=== PATIENT | female | born 1985 | race Two or more races ===

== ENCOUNTER 2018-10-06 13:12 | Emergency (ER) | payer SELFPAY ==
[~2018-10-06] VITALS: Ht 172.7 cm; Wt 99.8 kg
[~2018-10-06 13:12] MED LIST: PRENTAB28 PO
[2018-10-06 13:41] LABS: Basophils # (auto) 0.1 uL; Basophils % (auto) 1.1 % (0.0-2.0); Eosinophils # (auto) 0.1 uL; Eosinophils % (auto) 1.3 % (0.0-7.0); Hematocrit 41.7 % (36.0-46.0); Hemoglobin 14.3 g/dL (12.2-16.2); Lymphocytes # (auto) 2.3 uL; Lymphocytes % (auto) 22.6 % (10.0-50.0); Mean Corpuscular Hgb Conc. 34.2 g/dL (32.0-36.0); Mean Corpuscular Volume 90.8 fL (80.0-100.0); Monocytes # (auto) 0.4 uL; Monocytes % (auto) 4.4 % (0.0-12.0); Neutrophils # (auto) 7.1 uL; Neutrophils % (auto) 70.6 % (37.0-80.0); Platelet Count (auto) 292 10^3/uL (140-450); Red Blood Cells 4.59 10^6/uL (4.0-5.20); Red Cell Distribution Width 13.7 % (11.8-14.3)
[2018-10-06 13:57] LABS: Albumin 3.5 g/dL (3.4-5.0); Anion Gap 8 (5-15); Blood Urea Nitrogen 9 mg/dL (7-18); Calcium 9.2 mg/dL (8.5-10.1); Carbon Dioxide 22 mmol/L (21-32); Chloride 108 mmol/L (98-107); Glucose 105 mg/dL (74-106); Potassium 3.4 mmol/L (3.5-5.1); Sodium 138 mmol/L (136-145)
[2018-10-06 14:02] LABS: Alanine Aminotransferase 18 U/L (13-56); Alkaline Phosphatase 78 U/L (45-117); Aspartate Aminotransferase 9 U/L (15-37); BUN/Creatinine Ratio 11.8; Bilirubin, Total 0.5 mg/dL (0.2-1.0); GFR African American 113 mL/min; GFR Non-African American 94 mL/min; Total Protein 7.8 g/dL (6.4-8.2)
[2018-10-06 15:30] VITALS: BP 132/80
== END 2018-10-06 15:36 | disposition home or self-care (01) ==
LOC: ER 13:17
DX: O26.891 Other specified pregnancy related conditions, first trimester (principal); R07.89 Other chest pain; Z3A.01 Less than 8 weeks gestation of pregnancy
CPT/HCPCS: 36415; 80053; 84484; 85025; 93005

== ENCOUNTER 2018-10-13 11:31 | Emergency (ER) | payer SELFPAY ==
[~2018-10-13] VITALS: Ht 172.7 cm; Wt 99.8 kg
[2018-10-13] MEDS ORDERED: SODIUM CHLORIDE 0.9% 500 ML IV ONE (11:43)
[2018-10-13 12:14] LABS: Basophils # (auto) 0.1 uL; Basophils % (auto) 0.7 % (0.0-2.0); Eosinophils # (auto) 0.1 uL; Eosinophils % (auto) 1.5 % (0.0-7.0); Hematocrit 41.2 % (36.0-46.0); Hemoglobin 14.1 g/dL (12.2-16.2); Lymphocytes # (auto) 2.1 uL; Lymphocytes % (auto) 26.7 % (10.0-50.0); Mean Corpuscular Hemoglobin 30.8 pg (28.0-32.0); Mean Corpuscular Hgb Conc. 34.2 g/dL (32.0-36.0); Monocytes # (auto) 0.3 uL; Monocytes % (auto) 4.4 % (0.0-12.0); Neutrophils # (auto) 5.3 uL; Neutrophils % (auto) 66.7 % (37.0-80.0); Nucleated Red Blood Cells % 0.1 %; Platelet Count (auto) 304 10^3/uL (140-450); Red Blood Cells 4.58 10^6/uL (4.0-5.20); White Blood Cell 7.9 10^3/uL (4.4-10.8)
[2018-10-13 14:29] LABS: Urine Blood Normal /uL (Negative); Urine Specific Gravity 1.025 (1.001-1.035)
[2018-10-13 14:51] LABS: Urine WBC 5 /hpf (0 - 5)
[2018-10-13 14:52] LABS: Urine Bacteria MOD /hpf (None Seen); Urine Mucus FEW (None Seen)
[2018-10-13 16:31] VITALS: BP 124/64
== END 2018-10-13 16:37 | disposition home or self-care (01) ==
LOC: ER 11:31
DX: O20.0 Threatened abortion (principal); O23.41 Unspecified infection of urinary tract in pregnancy, first trimester; Z3A.01 Less than 8 weeks gestation of pregnancy
CPT/HCPCS: 36415; 76801; 76817; 81001; 84702; 85025; 86900; 86901; 94761; 99284; J7040

== ENCOUNTER 2018-11-21 12:49 | Emergency (ER) | payer MEDICAID ==
[~2018-11-21] VITALS: Ht 172.7 cm; Wt 99.8 kg
[2018-11-21 13:21] VITALS: BP 153/79
== END 2018-11-21 13:58 | disposition left against medical advice (07) ==
LOC: ER 12:52
DX: O26.891 Other specified pregnancy related conditions, first trimester (principal); R51 Headache; R42 Dizziness and giddiness; R07.9 Chest pain, unspecified; H53.8 Other visual disturbances; R11.0 Nausea; Z3A.13 13 weeks gestation of pregnancy

== ENCOUNTER 2019-02-12 07:55 | Observation (INO) | payer MEDICAID ==
[~2019-02-12] VITALS: Ht 172.7 cm; Wt 100.7 kg
[2019-02-12] MEDS ORDERED: [UNRECOGNIZED DRUG - CODE] (08:41)
== END 2019-02-12 08:57 | disposition home or self-care (01) | DRG 566 ==
LOC: LDRP 07:55
PROVIDERS: ADMIT Obstetrics & Gynecology; ATTEND Obstetrics & Gynecology
DX: O36.8120 Decreased fetal movements, second trimester, not applicable or unspecified (principal); Z3A.25 25 weeks gestation of pregnancy
CPT/HCPCS: 59025; 81002; G0378

== ENCOUNTER 2019-03-19 19:55 | Emergency (ER) | payer MEDICAID ==
[~2019-03-19] VITALS: Ht 172.7 cm; Wt 102.5 kg
[~2019-03-19 19:55] MED LIST changes: +[UNRECOGNIZED DRUG - CODE]
[2019-03-19] MEDS ORDERED: cefTRIAXone SOD 1,000 MG VL IM ONE (20:15)
[2019-03-19] MEDS ORDERED: ALBUTEROL SULF 2.5 MG/0.5ML(0.5%) NEB SOLN NEB ONE (20:15)
[2019-03-19] MEDS ORDERED: ACETAMINOPHEN 325 MG TAB PO ONE (20:15)
[2019-03-19] MEDS ORDERED: LIDOCAINE 2% (LOCAL ANESTH.) PF 5ml SDV ONE (20:48)
[2019-03-19 22:00] VITALS: BP 126/75
[2019-03-19] MEDS ORDERED: SODIUM CHLORIDE 0.9% 1,000 ML IV ONE (22:00)
== END 2019-03-19 23:29 | disposition home or self-care (01) ==
LOC: ER 19:59
DX: O26.893 Other specified pregnancy related conditions, third trimester (principal); J06.9 Acute upper respiratory infection, unspecified; H66.92 Otitis media, unspecified, left ear; Z3A.30 30 weeks gestation of pregnancy
CPT/HCPCS: 94640; 96372; 99283; J0696; J2001; J7030

== ENCOUNTER 2019-05-06 09:22 | Observation (INO) | payer MEDICAID ==
[~2019-05-06] VITALS: Ht 172.7 cm; Wt 102.1 kg
[2019-05-06 11:36] LABS: Basophils # (auto) 0 uL; Basophils % (auto) 0.5 % (0.0-2.0); Eosinophils # (auto) 0.1 uL; Eosinophils % (auto) 1.8 % (0.0-7.0); Hematocrit 38.7 % (36.0-46.0); Hemoglobin 13.4 g/dL (12.2-16.2); Lymphocytes # (auto) 1.8 uL; Lymphocytes % (auto) 20.9 % (10.0-50.0); Mean Corpuscular Hemoglobin 30.9 pg (28.0-32.0); Mean Corpuscular Hgb Conc. 34.6 g/dL (32.0-36.0); Mean Corpuscular Volume 89.2 fL (80.0-100.0); Monocytes # (auto) 0.3 uL; Monocytes % (auto) 3.9 % (0.0-12.0); Neutrophils # (auto) 6.2 uL; Neutrophils % (auto) 72.9 % (37.0-80.0); Nucleated Red Blood Cells % 0.1 %; Platelet Count (auto) 219 10^3/uL (140-450); Red Blood Cells 4.33 10^6/uL (4.0-5.20); Red Cell Distribution Width 14.5 % (11.8-14.3); White Blood Cell 8.5 10^3/uL (4.4-10.8)
[2019-05-06 11:54] LABS: Albumin 2.5 g/dL (3.4-5.0); Calcium 8.4 mg/dL (8.5-10.1); Potassium 3.8 mmol/L (3.5-5.1)
[2019-05-06 11:56] LABS: Bilirubin, Total 0.3 mg/dL (0.2-1.0); Total Protein 7.2 g/dL (6.4-8.2)
[2019-05-08] MEDS ORDERED: URSO300C4 PO (09:47)
== END 2019-05-06 11:35 | disposition home or self-care (01) | DRG 566 ==
LOC: LDRP 09:22
PROVIDERS: ADMIT Specialist; ATTEND Specialist
DX: O26.613 Liver and biliary tract disorders in pregnancy, third trimester (principal); Z3A.37 37 weeks gestation of pregnancy
CPT/HCPCS: 36415; 59025; 76818; 80053; 81002; 85025; G0378

== ENCOUNTER 2019-05-09 11:07 | Observation (INO) | payer MEDICAID ==
[~2019-05-09] VITALS: Ht 172.7 cm; Wt 102.1 kg
[~2019-05-09 11:07] MED LIST changes: +URSO300C4 PO
[2019-05-09] MEDS ORDERED: BETAMETHASONE ACET (6MG/ML) 5ML VIAL IM SCH (11:30)
== END 2019-05-09 13:05 | disposition home or self-care (01) | DRG 566 ==
LOC: LDRP 11:07
PROVIDERS: ADMIT Specialist; ATTEND Specialist
DX: O26.613 Liver and biliary tract disorders in pregnancy, third trimester (principal); K83.1 Obstruction of bile duct; Z3A.37 37 weeks gestation of pregnancy
CPT/HCPCS: 59025; 81002; 96372; G0378; J0702

== ENCOUNTER 2019-05-09 22:02 | Inpatient (IN) | payer MEDICAID ==
[~2019-05-09] VITALS: Ht 172.7 cm; Wt 56.7 kg
[2019-05-09] MEDS ORDERED: LACT. RINGERS/OXYTOCIN 20UNITS 1,000 ML IV SCH (22:13)
[2019-05-09] MEDS ORDERED: LIDOCAINE 2%HCL (LOCAL ANESTH.) INJ 20ML MDV ID ONE (22:15)
[2019-05-09] MEDS ORDERED: METHYLERGONOVINE MALEATE 0.2 MG/ML AMP IM PRN (22:15)
[2019-05-09] MEDS ORDERED: CARBOPROST TROMETHAMINE 250 MCG/1ML VIAL IM PRN (22:15)
[2019-05-09] MEDS: LACTATED RINGER'S 1,000 ML IV SCH (22:23)
[2019-05-09] MEDS ORDERED: BUTORPHANOL TARTRATE 2 MG/1 ML VIAL IV PRN (22:30)
[2019-05-09] MEDS ORDERED: PROMETHAZINE HCL 25 MG/ML 1ML IV PRN (22:30)
[2019-05-09 22:49] LABS: Basophils # (auto) 0 uL; Basophils % (auto) 0.2 % (0.0-2.0); Eosinophils # (auto) 0 uL; Hematocrit 36.4 % (36.0-46.0); Hemoglobin 12.1 g/dL (12.2-16.2); Lymphocytes # (auto) 1.2 uL; Lymphocytes % (auto) 10.2 % (10.0-50.0); Mean Corpuscular Hemoglobin 29.8 pg (28.0-32.0); Mean Corpuscular Hgb Conc. 33.3 g/dL (32.0-36.0); Mean Corpuscular Volume 89.4 fL (80.0-100.0); Monocytes # (auto) 0.2 uL; Monocytes % (auto) 2.1 % (0.0-12.0); Neutrophils # (auto) 10.1 uL; Neutrophils % (auto) 87.5 % (37.0-80.0); Nucleated Red Blood Cells % 0.1 %; Platelet Count (auto) 250 10^3/uL (140-450); Red Blood Cells 4.07 10^6/uL (4.0-5.20); Red Cell Distribution Width 14.2 % (11.8-14.3); White Blood Cell 11.5 10^3/uL (4.4-10.8)
[2019-05-09 22:57] LABS: Urine Bacteria FEW /hpf (None Seen); Urine Blood Negative /uL (Negative); Urine Mucus FEW (None Seen); Urine Specific Gravity 1.036 (1.001-1.035); Urine WBC 19 /hpf (0 - 5)
[2019-05-09 23:06] LABS: Albumin 2.5 g/dL (3.4-5.0); Calcium 8.3 mg/dL (8.5-10.1); Potassium 3.6 mmol/L (3.5-5.1)
[2019-05-09 23:08] LABS: BUN/Creatinine Ratio 22.9
[2019-05-09 23:09] LABS: Alcohol, Urine < 3.0 mg/dL (0-5); Amphetamine Screen, Urine NEGATIVE (NEGATIVE); Barbiturate Scree,Urine NEGATIVE (NEGATIVE); Benzodiazephine Screen, Urine NEGATIVE (NEGATIVE); Cannabinoid Screen, Urine NEGATIVE (NEGATIVE); Cocaine Screen, Urine NEGATIVE (NEGATIVE); Opiate Scree,Urine NEGATIVE (NEGATIVE); Phencyclidine Screen, Urine NEGATIVE (NEGATIVE)
[2019-05-09 23:12] LABS: INR 1.01 (0.9-1.15); Partial Thromboplastin Time 28.9 sec (23.64-32.05)
[2019-05-09 23:28] LABS: Bilirubin, Total 0.2 mg/dL (0.2-1.0); Total Protein 6.9 g/dL (6.4-8.2)
[2019-05-10] MEDS: DERMOPLAST 60ML BOTTLE TOP PRN (03:59)
[2019-05-10] MEDS: WITCH HAZEL-GLYCERIN PAD TOP PRN (03:59)
[2019-05-10] MEDS: PHISODERM TOP SOLN 240ML BTL TOP PRN (03:59)
[2019-05-10] MEDS: LACTATED RINGER'S 1,000 ML IV SCH ×2 (06:30→20:00)
[2019-05-10] MEDS ORDERED: LACT. RINGERS/OXYTOCIN 20UNITS 1,000 ML IV SCH (18:15)
[2019-05-10] MEDS ORDERED: TERBUTALINE SULFATE 1 MG/ML 1ML VIAL SC ONE (18:15)
[2019-05-10] MEDS ORDERED: ONDANSETRON HCL 4 MG/2 ML VIAL IV PRN (18:30)
[2019-05-10] MEDS ORDERED: DIPHENOXYLATE W/ATROPINE 2.5 MG TAB PO PRN (18:30)
[2019-05-11] MEDS: LACTATED RINGER'S 1,000 ML IV SCH ×2 (01:50→05:25)
[2019-05-11 06:06] LABS: RPR Non Reactive (Non Reactive)
[2019-05-11] MEDS ORDERED: LACT. RINGERS/OXYTOCIN 20UNITS 500 ML IV ONE (14:41)
[2019-05-11] MEDS ORDERED: ACETAMINOPHEN 325 MG TAB PO PRN (14:45)
--- NOTE | 2019-05-11 15:01 | NUR ---
REPORT PT REPORT RECEIVED FROM Emma GARLAND RN ON STABLE PATIENT. PT IS LYING SEMIFOWLERS IN BED, SLEEPING, EASILY AROUSED BY TOUCH. PTS RESPIRATIONS ARE EVEN AND NONLABORED. NO DISTRESS NOTED, ASSUMING CARE. PTS BED IS LOCKED AND IN LOWEST POSITION, 2 SIDE RAILS UP, CALL LIGHT WITHIN REACH, FOB AT BEDSIDE. WILL CONTINUE TO MONITOR.
[2019-05-11 15:19] VITALS: BP 143/67
--- NOTE | 2019-05-11 15:19 | NUR ---
Ambulation: Patient OOB with standby assistance by RN. Patient ambulated to bathroom with steady gait. Patient able to void 450ml pink tinged urine without difficulty. Pericare teaching provided with returned demonstration by patient. Clean gown provided and bed linen changed. Patient ambulated back to bed with steady gait and no distress noted. Pt ambulated back to bed via steady gait, no distress noted. Will continue to monitor.
[2019-05-11] MEDS: WITCH HAZEL-GLYCERIN PAD TOP PRN (15:35)
[2019-05-11] MEDS: PHISODERM TOP SOLN 240ML BTL TOP PRN (15:35)
[2019-05-11] MEDS: DERMOPLAST 60ML BOTTLE TOP PRN (15:35)
[2019-05-11 19:12] VITALS: BP 127/46
[2019-05-11 22:30] VITALS: BP 133/83
[2019-05-11] MEDS: IBUPROFEN 600 MG TAB PO PRN (23:31)
[2019-05-12 02:39] VITALS: BP 119/64
[2019-05-12 07:00] VITALS: BP 100/64
[2019-05-12 11:00] VITALS: BP 117/72
[2019-05-12] MEDS: IBUPROFEN 600 MG TAB PO PRN (11:03)
--- NOTE | 2019-05-12 11:03 | NUR ---
PT MEDICATED WITH MOTRIN 600MG PO PER ORDERS FOR ABD CRAMPS RATING 2/10.
--- NOTE | 2019-05-12 12:05 | NUR ---
received report from antonio hilliard rn and [facility].
--- NOTE | 2019-05-12 12:05 | NUR ---
PT REPORT GIVEN TO Jose MELTON RN ON STABLE PATIENT, RELINQUISHED CARE. NO DISTRESS NOTED.
--- NOTE | 2019-05-12 13:55 | NUR ---
iv line removed and discontinued.2x2 pressure dressing applied.no bleeding noted.
[2019-05-12 15:00] VITALS: BP 112/82
--- NOTE | 2019-05-12 15:00 | NUR ---
Discharge: Discharge instructions given to mother of baby as ordered. Copies of and hearing screening, along with vaccination record given to mother. Mother encouraged to follow up with Rn Document Improvement Specialist of choice and to give envelope with infants information to health workers at 1st office visit. All questions and concerns addressed. Mother of baby verbalized understanding and agreed to comply. Mother of baby encouraged to prepare for departure and notify RN ready to leave room for ID band removal/verification and car seat check.
--- NOTE | 2019-05-12 15:00 | NUR ---
Discharge: Discharge instructions given as ordered. Pt encouraged to follow up with DIESEL ENGINE ASSEMBLER as instructed. All questions and concerns addressed. Patient verbalized understanding. Medication reconciliation completed and copy given to patient. All required/requested vaccines given and copies of vaccinations given to patient. Patient encouraged to prepare to depart unit.
--- NOTE | 2019-05-12 15:11 | NUR ---
Discharge: Patient taken to vehicle ambulatory with all personal belongings, accompanied by staff and family member. No distress noted at time of departure, no adverse changes in status since initial assessment.
== END 2019-05-12 15:11 | disposition home or self-care (01) | DRG 560 ==
LOC: LDRP 22:02
PROVIDERS: ADMIT Specialist; ATTEND Specialist
PROC: 10E0XZZ Delivery of Products of Conception, External Approach (ICD-10-PCS; principal; 2019-05-11)
PROC: 3E0P7VZ Introduction of Hormone into Female Reproductive, Via Natural or Artificial Opening (ICD-10-PCS; 2019-05-11)
PROC: 10H07YZ Insertion of Other Device into Products of Conception, Via Natural or Artificial Opening (ICD-10-PCS; 2019-05-11)
PROC: 10907ZC Drainage of Amniotic Fluid, Therapeutic from Products of Conception, Via Natural or Artificial Opening (ICD-10-PCS; 2019-05-11)
PROC: 0KQM0ZZ Repair Perineum Muscle, Open Approach (ICD-10-PCS; 2019-05-11)
DX: O26.62 Liver and biliary tract disorders in childbirth (principal); K83.1 Obstruction of bile duct; O70.1 Second degree perineal laceration during delivery; Z37.0 Single live birth; Z3A.37 37 weeks gestation of pregnancy
CPT/HCPCS: 36415; 59025; 59200; 59409; 80053; 80307; 81001; 84112; 85025; 85610; 85730; 86592; 86850; 86900; 86901; 94762; 96365; 96372; 96374; 96375; G0378; J2590